=== PATIENT | female | born 1945 | race Caucasian/White ===

== ENCOUNTER 2020-03-05 15:49 | Emergency (ER) | payer MEDICARE, MEDICAID ==
[~2020-03-05] VITALS: Ht 162.6 cm; Wt 40.9 kg
[~2020-03-05 15:49] MED LIST: ATOR40TA71 PO; BUDE10.2 INH; CLON1TAB13 PO; FURO-150 PO; GABA-532 PO; HYDR-3972 PO; LEVO88TA7 PO; POTA10TA19 PO; PRED5TAB PO; PROC10TA10 PO; RALO60TA13 PO
[2020-03-05 15:54] VITALS: BP 161/56
== END 2020-03-05 17:15 | disposition home or self-care (01) ==
LOC: ER 15:50
DX: S49.81XA Other specified injuries of right shoulder and upper arm, initial encounter (principal); J43.9 Emphysema, unspecified; E78.00 Pure hypercholesterolemia, unspecified; G89.29 Other chronic pain; F32.9 Major depressive disorder, single episode, unspecified; Z85.07 Personal history of malignant neoplasm of pancreas; Z98.890 Other specified postprocedural states; Z79.899 Other long term (current) drug therapy; Z88.0 Allergy status to penicillin; X58.XXXA Exposure to other specified factors, initial encounter; Y93.89 Activity, other specified; Y92.89 Other specified places as the place of occurrence of the external cause; Y99.8 Other external cause status
CPT/HCPCS: 73030; 99283